=== PATIENT | female | born 1995 | race Caucasian/White ===

== ENCOUNTER 2022-05-23 17:10 | Emergency (ER) | payer SELFPAY ==
[2022-05-23] MEDS ORDERED: LORAZEPAM 1 MG TABLET ONE (18:25)
--- NOTE | 2022-05-23 19:42 | EDPHYS ---
Physician Documentation [facility] Name: Tali Lacy Age: 26 yrs Sex: Female : 1995 Arrival Date: 05/23/2022 Time: 17:13 Bed 5 Private MD: ED Physician Ej Wing HPI: 05/23 18:12 This 26 yrs old Female presents to ER via Wheelchair with complaints of Unable To Sleep.pm1 18:12 The patient presents to the emergency department with anxiety, over work, thinks he/she pm1 might get fired, insomnia. Onset: The symptoms/episode began/occurred 1 week(s) ago. Past psychiatric history: Prior diagnosis: PMDD, Psychiatric medications include: buspar and Ambien. Associated signs and symptoms: Pertinent positives; anxiety, Pertinent negatives: depression, homicidal ideation, suicide ideation. Severity of symptoms: in the emergency department the symptoms are worse. The patient has experienced similar episodes in the past, several times. The patient has not recently seen a physician, Just moved to the area. 26-year-old female presents to the ER with complaints of insomnia and anxiety related to PMDD. Patient is looking for assistance with treating her PMDD, IUD and BuSpar typically help with her symptoms. However patient has not been taking her BuSpar for approximately the past week. 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 Additionally she just forgets to take her BuSpar. Yesterday was the patient's first day on the job and she called in sick, and she presented to work today and was unable to function due to the PMDD. Patient is requesting a IUD which has helped in the past. 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 - Social history:: Smoking status: Patient denies any tobacco usage or history of. ROS: 18:12 Constitutional: Negative for fever, chills, and weight loss, Cardiovascular: Negative pm1 for chest pain, palpitations, and edema, Respiratory: Negative for shortness of breath, cough, wheezing, and pleuritic chest pain, Abdomen/GI: Negative for abdominal pain, nausea, vomiting, diarrhea, and constipation, MS/Extremity: Negative for injury and deformity, Skin: Negative for injury, rash, and discoloration, Neuro: Negative for headache, weakness, numbness, tingling, and seizure. 18:12 Psych: Positive for anxiety, insomnia, Negative for homicidal ideation, suicidal ideation. 18:12 All other systems are negative. Exam: 18:12 Constitutional: This is a well developed, well nourished patient who is awake, alert, pm1 and in no acute distress. Head/Face: Normocephalic, atraumatic. 18:12 Skin: Warm, dry with normal turgor. Normal color with no rashes, no lesions, and no evidence of cellulitis. MS/ Extremity: Pulses equal, no cyanosis. Neurovascular intact. Full, normal range of motion. 18:12 Eyes: Exam is negative for acute changes, Periorbital structures: appear normal, Pupils: no acute changes, Extraocular movements: no acute changes. 18:12 ENT: Exam is negative for Mouth: no acute changes, Lips: normal, moist, Oral mucosa: normal, pink and intact, moist. 18:12 Cardiovascular: Exam negative for acute changes, Rate: normal, Rhythm: regular, Pulses: no pulse deficits are appreciated. 18:12 Respiratory: Exam negative for acute changes, respiratory distress, shortness of breath. 18:12 Neuro: Exam negative for acute changes, Orientation: is normal, Mentation: is normal, Motor: is normal, moves all fours. 18:12 Psych: Behavior/mood is anxious, Affect is animated, Oriented to person, place, time, Delusions/hallucinations are not present. Vital Signs: 17:24 BP 142 / 90; Pulse 89; Resp 16; Temp 98.1; Pulse Ox 100% on R/A; Weight 72.57 kg; vg1 Height 5 ft. 5 in. (165.10 cm); Pain 0/10; 17:24 Body Mass Index 26.63 (72.57 kg, 165.10 cm) vg1 MDM: 18:11 Patient medically screened. pm1 18:12 ED course: Discussed with patient and her standard of care for psychiatric pm1 concerns in the ER which typically involves a toxicology work-up, that includes IV and blood work. Patient reported decreased p.o. intake therefore also offered and recommended IV fluids. Patient and her came in with the impression that possibly she can get an IUD to help out with her PMDD. However I informed him that she would need to go to a book editor/maintenance shop clerk for that and it is not performed in the ER. They refused blood work and IV fluids and wanted to take a medicine here by mouth to assist with her symptoms. I offered them a benzodiazepine to help her with her anxiety. Will give the patient Ativan the ER and recommended that she start taking her buspirone daily, since she has been missing multiple doses over the week, and she can take her Ambien at night as needed for her insomnia. 19:31 Data reviewed: vital signs. Data interpreted: Pulse oximetry: on room air is 100 %. pm1 Interpretation: normal. 19:40 Counseling: I had a detailed discussion with the patient and/or guardian regarding: the pm1 historical points, exam findings, and any diagnostic results supporting the discharge/admit diagnosis, the need for outpatient follow up, an OB/Gyne specialist, a psychiatrist, the need to transfer to another facility. Administered Medications: 18:50 Drug: Ativan (LORazepam) 1 mg Route: PO; ph 19:04 Follow up: Response: No adverse reaction ph Disposition: 05/24 07:39 Co-signature as Attending Physician, Ej Wing MD I agree with the assessment and kdr plan of care. Disposition Summary: 05/23/22 19:42 Discharge Ordered Location: Home pm1 Problem: new pm1 Symptoms: have improved pm1 Condition: Stable pm1 Diagnosis - Insomnia, unspecified pm1 Followup: pm1 - With: Emergency Department - When: As needed - Reason: Worsening of condition Followup: pm1 - With: Private Physician - When: 2 - 3 days - Reason: Recheck today's complaints, Continuance of care, Re-evaluation by your physician Discharge Instructions: - Discharge Summary Sheet pm1 - Insomnia pm1 - Managing Stress, Adult pm1 - Managing Anxiety, Adult pm1 Forms: - Medication Reconciliation Form pm1 - Thank You Letter pm1 - Antibiotic Education pm1 - Prescription Opioid Use pm1 Prescriptions: - Hydroxyzine HCl 25 mg Oral Tablet - take 1 tablet by ORAL route every 6 hours As needed; 12 tablet; Refills: 0, pm1 Product Selection Permitted Signatures: Ej Wing MD MD kdr Yanni Jack RN RN ph Malvin Quiles, WORM FARMER WORM FARMER pm1 Amalia Altman RN RN vg1
--- NOTE | 2022-05-23 19:42 | ER ---
Nurse's Notes [facility] Name: Tali Lacy Age: 26 yrs Sex: Female : 1995 Arrival Date: 05/23/2022 Time: 17:13 Bed 5 Private MD: Diagnosis: Insomnia, unspecified Presentation: 05/23 17:24 Chief complaint: Patient states: "I have PMDD and its keeping me for sleeping and vg1 eating; I forget to eat at times; I have a headache and I feel nauseated; I just so tired". Coronavirus screen: Vaccine status: Patient reports being unvaccinated. Client denies travel out of the [place] in the last 14 days. Ebola Screen: Patient denies exposure to infectious person. Patient denies travel to an Ebola-affected area in the 21 days before illness onset. Initial Sepsis Screen: Does the patient meet any 2 criteria? No. Patient's initial sepsis screen is negative. Does the patient have a suspected source of infection? No. Patient's initial sepsis screen is negative. Risk Assessment: Do you want to hurt yourself or someone else? Patient reports no desire to harm self or others. Onset of symptoms was May 18, 2022. 17:24 Method Of Arrival: Wheelchair vg1 17:24 Acuity: CARLOS 3 vg1 Triage Assessment: 17:28 General: Appears uncomfortable, Behavior is agitated. Pain: Denies pain. 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 - Social history:: Smoking status: Patient denies any tobacco usage or history of. Screenin:00 Abuse screen: Denies threats or abuse. Denies injuries from another. Nutritional ph screening: No deficits noted. Tuberculosis screening: No symptoms or risk factors identified. Fall Risk None identified. Assessment: 19:01 General: Appears in no apparent distress. Behavior is cooperative, anxious, restless. ph Pain: Denies pain. Neuro: Level of Consciousness is awake, alert, obeys commands, Oriented to person, place, situation, Pupils are pinpoint. Cardiovascular: Capillary refill < 3 seconds in bilateral fingers Patient's skin is warm and dry. Respiratory: Airway is patent Respiratory pattern is regular, symmetrical. Derm: Skin is intact, is healthy with good turgor, Skin is pink, warm \\T\\ dry. Vital Signs: 17:24 BP 142 / 90; Pulse 89; Resp 16; Temp 98.1; Pulse Ox 100% on R/A; Weight 72.57 kg; vg1 Height 5 ft. 5 in. (165.10 cm); Pain 0/10; 17:24 Body Mass Index 26.63 (72.57 kg, 165.10 cm) vg1 ED Course: 17:13 Patient arrived in ED. rg4 17:28 Triage completed. vg1 17:28 Arm band placed on. vg1 17:32 Yanni Jack RN is Primary Nurse. ph 17:38 Malvin Quiles NP is PHCP. 7 18:18 Ej Wing MD is Attending Physician. pm1 19:01 Patient has correct armband on for positive identification. Bed in low position. Call ph light in reach. Side rails up X 1. Pulse ox on. NIBP on. 19:04 No provider procedures requiring assistance completed. Patient did not have IV access ph during this emergency room visit. Administered Medications: 18:50 Drug: Ativan (LORazepam) 1 mg Route: PO; ph 19:04 Follow up: Response: No adverse reaction ph Medication: 19:01 VIS not applicable for this client. ph Outcome: 19:42 Discharge ordered by . pm1 20:02 Discharged to home ambulatory. ll3 20:02 Condition: stable 20:02 Discharge instructions given to patient, significant other, Instructed on discharge instructions, follow up and referral plans. medication usage, Demonstrated understanding of instructions, follow-up care, medications, Prescriptions given X 1. 20:02 Patient left the ED. ll3 Signatures: Yanni Jack RN RN Malvin Quiles NP COPRA SAMPLER pm1 Leigh Ann Altman 4 Shilpa Romeo RN RN 7 Amalia Altman RN RN [facility] Loubet, Lynsea, RN RN ll3
[2022-05-23 20:13] VITALS: BP 142/90; TEMP 98.1; O2SAT 100
== END 2022-05-23 20:02 | disposition home or self-care (01) ==
LOC: ER 17:10
DX: G47.00 Insomnia, unspecified (principal); F32.A Depression, unspecified; F32.81 Premenstrual dysphoric disorder
CPT/HCPCS: 99283

== ENCOUNTER 2022-05-25 15:53 | Emergency (ER) | payer SELFPAY ==
[2022-05-25 16:26] LABS: Absolute Lymphocytes (CBC) 1.6 K/uL (0.7-4.9); Hematocrit 39.2 % (36.0-45.0); Lymphocytes % 26.3 % (15.3-44.8); MCV 88.1 fL (80-100); MPV 8.7 fL (7.6-11.3); RBC Red Blood Cell Count 4.45 M/uL (3.86-4.86)
[2022-05-25 16:31] LABS: Protime INR 0.99
[2022-05-25 16:45] LABS: Bilirubin Direct 0.1 mg/dL (0-0.2); Bilirubin Total 0.5 mg/dL (0.2-1.0); Potassium 3.3 mmol/L (3.5-5.1)
[2022-05-25] MEDS ORDERED: LORazepam 2 MG/ML VIAL ONE (16:56)
[2022-05-25 17:25] LABS: Urine Blood Negative (Negative); Urine Glucose Negative (Negative); Urine Protein Negative (Negative)
[2022-05-25 17:40] LABS: Barbiturates NEGATIVE (NEGATIVE); Benzodiazepines NEGATIVE (NEGATIVE); Cocaine NEGATIVE (NEGATIVE); METHAMPHETAM NEGATIVE (NEGATIVE); Methadone NEGATIVE (NEGATIVE); Opiates NEGATIVE (NEGATIVE); Phencyclidine NEGATIVE (NEGATIVE); THC Cannibis NEGATIVE (NEGATIVE)
--- NOTE | 2022-05-25 19:29 | EDPHYS ---
Physician Documentation [facility] Name: Tali Lacy Age: 26 yrs Sex: Female : 1995 Arrival Date: 05/25/2022 Time: 15:53 Bed 14 Private MD: NIKOLAY Physician Subhash Khalil HPI: 05/25 17:55 This 26 yrs old Female presents to ER via Ambulatory with complaints of Psych Problem. kdr 17:55 The patient presents to the emergency department with psychosis, has delusions. Onset: kdr The symptoms/episode began/occurred gradually, The patient had delivered her first baby about 3 months ago. Since then she has progressively had worsening anxiety and sleep disorder. Most recently she has been reportedly running naked in her yard with her having to susan her down. In the emergency department, she is clearly psychotic with aberrant behavior. He does not follow commands or appear to be interacting or engaged appropriately in the environment around her. Past psychiatric history: Prior diagnosis: no previous psychiatric diagnosis known, Psychiatric medications include:. Severity of symptoms: At their worst the symptoms were moderate severe incapacitating in the emergency department the symptoms are unchanged. The patient has not experienced similar symptoms in the past. The patient has not recently seen a physician. Patient's states that she has been told that she has PMDD (premenstrual dysphoria disorder). She otherwise has no personal or familial history of psychiatric disease. He states that her was uneventful and pleasant. He has only been in the past few weeks to a month that she is started to have aberrant behavior. 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 - Social history:: Smoking status: Patient denies any tobacco usage or history of. ROS: 17:55 Constitutional: Negative for fever, chills, and weight loss, Eyes: Negative for injury, kdr pain, redness, and discharge, Neck: Negative for injury, pain, and swelling, Cardiovascular: Negative for chest pain, palpitations, and edema, Respiratory: Negative for shortness of breath, cough, wheezing, and pleuritic chest pain, Abdomen/GI: Negative for abdominal pain, nausea, vomiting, diarrhea, and constipation, Back: Negative for injury and pain, : Negative for injury, bleeding, discharge, and swelling, MS/Extremity: Negative for injury and deformity, Skin: Negative for injury, rash, and discoloration, Neuro: Negative for headache, weakness, numbness, tingling, and seizure activity. Allergy/Immunology: Negative for hives, rash, and allergies, Endocrine: Negative for neck swelling, polydipsia, polyuria, polyphagia, and marked weight changes, Hematologic/Lymphatic: Negative for swollen nodes, abnormal bleeding, and unusual bruising. 17:55 Psych: Positive for Patient is clearly delusional and engaged with the environment and people around her in an aberrant fashion. Exam: 17:55 Constitutional: This is a well developed, well nourished patient who is awake, alert, kdr and in no acute distress. Head/Face: Normocephalic, atraumatic. Eyes: Pupils equal round and reactive to light, extra-ocular motions intact. Lids and lashes normal. Conjunctiva and sclera are non-icteric and not injected. Cornea within normal limits. Periorbital areas with no swelling, redness, or edema. Neck: Trachea midline, no thyromegaly or masses palpated, and no cervical lymphadenopathy. Supple, full range of motion without nuchal rigidity, or vertebral point tenderness. No Meningismus. Chest/axilla: Normal chest wall appearance and motion. Nontender with no deformity. No lesions are appreciated. Cardiovascular: Regular rate and rhythm with a normal S1 and S2. No gallops, murmurs, or rubs. Normal PMI, no JVD. No pulse deficits. Respiratory: Lungs have equal breath sounds bilaterally, clear to auscultation and percussion. No rales, rhonchi or wheezes noted. No increased work of breathing, no retractions or nasal flaring. Abdomen/GI: Soft, non-tender, with normal bowel sounds. No distension or tympany. No guarding or rebound. No evidence of tenderness throughout. Back: No spinal tenderness. No costovertebral tenderness. Full range of motion. Skin: Warm, dry with normal turgor. Normal color with no rashes, no lesions, and no evidence of cellulitis. MS/ Extremity: Pulses equal, no cyanosis. Neurovascular intact. Full, normal range of motion. Psych: Awake, alert, with orientation to person, place and time. Behavior, mood, and affect are within normal limits. 17:55 Psych: Behavior/mood is anxious, uncooperative, delirious, inappropriate for age, Affect is animated, Not oriented to person place, time, Patient has no thoughts/intents to harm self or others. Judgement / Insight is impaired. Delusions/hallucinations are present and described as Patient's mental status compromised as she is clearly delusional.. Vital Signs: 16:05 BP 139 / 87; Pulse 72; Resp 25; Temp 97.5(TE); Pulse Ox 99% on R/A; Height 5 ft. 5 in. ss (165.10 cm); 16:58 BP 136 / 80; Pulse 64; Resp 18; Pulse Ox 97% on R/A; ll1 05/26 07:20 BP 118 / 64; Pulse 62; Resp 16; Temp 97.6(TE); Pulse Ox 100% ; Pain 0/10; ke1 05/27 06:37 BP 117 / 98; Pulse 78; Resp 17; Temp 97.8(O); Pulse Ox 100% on R/A; mw2 MDM: 05/25 17:55 Data reviewed: vital signs, nurses notes, lab test result(s), radiologic studies. kdr Counseling: I had a detailed discussion with the patient and/or guardian regarding: the historical points, exam findings, and any diagnostic results supporting the discharge/admit diagnosis, lab results. 18:58 ED course: Dr. Khalil to disposition. kdr 19:20 Patient medically screened. [facility] 05/26 18:24 ED course: Patient remained stable in the ED today. She is only required medication 1 kdr time. She seems to be improving and interacting more appropriately with family and staff. He still on the waiting list for [facility] psych. 18:56 ED course: Patient seems much more alert and appropriate. She is engaging appropriately kdr with her and the nursing staff. She has been sleeping off and on today and when the came in this evening, she was awakened from sleep at that time. She is becoming more aware of her condition and the state she was in yesterday. This is been somewhat traumatic for her and she is intermittently crying. She is however talking in an appropriate fashion and again is engaged with her in understanding what is happened with her in the last week or 2. In the final analysis it would appear that in the midst of not getting any sleep and continued sleep deprivation, she was taking increasing doses of her Ambien. The Ambien was not having any effect on her sleeping and in fact probably contributed to her psychosis for which she presented to the ED. She is not presently homicidal or suicidal and in my discussions with the , appears to be safe for discharge. Their new baby is under the care of an aunt next few days. This will give them time to further and rest and perspective on the events of the last 10 days.. 05/27 14:28 ED course: Doc to doc with Dr Johnny alexandre. ms3 05/25 15:56 Order name: Acetaminophen; Complete Time: 19:21 [facility] 05/25 15:56 Order name: Basic Metabolic Panel; Complete Time: 19: kdr 05/25 15:56 Order name: CBC with Diff; Complete Time: 19:21 kdr 05/25 15:56 Order name: ETOH Level; Complete Time: 19: [facility] 05/25 15:56 Order name: Hepatic Function; Complete Time: 19: kdr 05/25 15:56 Order name: PT-INR; Complete Time: 19:21 kdr 05/25 15:56 Order name: Ptt, Activated; Complete Time: 19: [facility] 05/25 15:56 Order name: Salicylate; Complete Time: 19:21 kdr 05/25 15:56 Order name: Urine Drug Screen; Complete Time: 19:21 kdr 05/25 17:25 Order name: Urine Dipstick-Ancillary; Complete Time: 19:21 [facility] 05/25 19:29 Order name: SARS-COV-2 RT PCR (Document "Date of Onset" if Symptomatic); Complete Time: wm 22:01 05/25 15:56 Order name: IV Saline Lock; Complete Time: 17:04 kdr 05/25 15:56 Order name: Labs collected and sent; Complete Time: 17:04 [facility] 05/25 15:56 Order name: Suicide Screening ([place]); Complete Time: 17:05 kdr 05/25 15:56 Order name: Urine Dipstick-Ancillary (obtain specimen); Complete Time: 17:17 kdr 05/25 17:47 Order name: Diet Finger Food; Complete Time: 17:47 05/25 17:48 Order name: Diet Diet As Per Parent; Complete Time: 17:48 zm 05/27 11:10 Order name: Diet Finger Food; Complete Time: 11:11 eb Administered Medications: 05/25 16:50 Drug: Ativan (LORazepam) 1 mg Route: IVP; Site: right antecubital; ll1 17:17 Drug: Ativan (LORazepam) 1 mg Route: IVP; Site: right antecubital; ll1 17:17 Follow up: Response: No adverse reaction; RASS: Alert and Calm (0) ll1 17:53 Follow up: Response: No adverse reaction; RASS: Alert and Calm (0) ll1 19:44 Drug: Potassium Effervescent Tablet 50 mEq Route: PO; ke1 21:39 Follow up: Response: No adverse reaction ke1 22:13 Drug: NS 0.9% 1000 ml Route: IV; Rate: 1 bolus; Site: right antecubital; ke1 23:00 Follow up: IV Status: Completed infusion ke1 05/26 02:48 Drug: Ativan (LORazepam) 1 mg Route: IVP; Site: right antecubital; lp1 04:25 Follow up: Response: Anxiety decreased ke1 04:33 Follow up: Response: Marked relief of symptoms; Anxiety decreased ke1 06:08 Drug: Ativan (LORazepam) 1 mg Route: IVP; Site: right antecubital; ke1 12:27 Drug: Ativan (LORazepam) 1 mg Route: IVP; Site: right antecubital; jh6 21:21 Drug: Ativan (LORazepam) 1 mg Route: IVP; Site: right antecubital; vc1 22:30 Follow up: Response: Marked relief of symptoms; Anxiety decreased vc1 05/27 01:10 Drug: Ativan (LORazepam) 1 mg Route: IVP; Site: right antecubital; vc1 05:41 Follow up: Response: Adverse reaction, Physician notified; No change in condition; vc1 RASS: Restless (+1) 01:42 Drug: Geodon (ziprasidone) 20 mg Route: IM; Site: right gluteus; vc1 05:41 Follow up: Response: No adverse reaction; Marked relief of symptoms; RASS: Light vc1 sedation (-2) 11:00 Drug: Ativan (LORazepam) 1 mg Route: IVP; Site: right antecubital; jh6 Disposition Summary: 05/26/22 21:45 Transfer Ordered Transfer Location: Psych Facility(05/26/22 21:45) isa Reason: Higher level of care(05/26/22 21:45) isa Condition: Fair(05/26/22 21:45) isa Problem: new(05/26/22 21:45) isa Symptoms: have improved(05/26/22 21:45) isa Accepting Physician: to psych(05/27/22 17:54) [facility] Diagnosis - Brief psychotic disorder isa - Major depressive disorder, recurrent, moderate isa - Insomnia(05/26/22 21:45) isa Forms: - Medication Reconciliation Form isa - SBAR form isa Signatures: Dispatcher [employer] EDMS Subhash Khalil MD MD cha Rittger, Kevin, MD MD kdr Smirch, Shelby, RN RN ss Sara Graham RN RN lp1 Marcin Garcia RN RN ll1 David Foote DO DO ms3 Mallory Borges RN RN jh6 Riya Perez RN RN vc1 Cecille Mccormack RN RN ke1 Nancy Villela, PA PA sb3 Corrections: (The following items were deleted from the chart) 05/25 22:00 19:28 to psych isa isa / 18:59 03 19:28 Psych Facility isa kdr / 18:59 05/25 19:28 Higher level of care isa kdr / 18:59 03 19:28 Stable isa kdr / 18:59 05/25 19:28 new isa kdr / 18:59 0703 19:28 have improved isa kdr / 18:59 07 19:28 Major depressive disorder, recurrent, unspecified - psychosis isa kdr / 18:59 0703 22:00 to psych isa kdr / 18:59 05/25 22:00 Insomnia isa kdr / 19:38 19:00 Home kdr kdr 19:38 19:00 new kdr kdr 19:38 19:00 have improved kdr kdr 19:38 19:00 Stable kdr kdr 19:38 19:00 Insomnia kdr kdr 19:38 19:00 Insomnia, unspecified kdr kdr 19:38 19:00 Unspecified psychosis not due to a substance or known physiological condition kdr kdr 19:38 19:00 Adverse medication reaction (Ambien) kdr kdr 19:38 19:00 Psychotic disorder with delusions due to known physiological condition [facility] 05/27 17:54 05/26 21:45 to psych [facility] jh6
--- NOTE | 2022-05-25 19:29 | ER ---
Nurse's Notes [facility] Name: Tali Lacy Age: 26 yrs Sex: Female : 1995 Arrival Date: 05/25/2022 Time: 15:53 Bed 14 Private MD: Diagnosis: Brief psychotic disorder;Major depressive disorder, recurrent, moderate;Insomnia Presentation: 05/25 16:05 Chief complaint: Spouse and/or significant other states: Episodic psychosis that has ss been ongoing and worsening for the past week. states, "she has PMDD, but we've never experienced anything like this.". Coronavirus screen: Client denies travel out of the [place] in the last 14 days. Ebola Screen: Patient denies exposure to infectious person. Patient denies travel to an Ebola-affected area in the 21 days before illness onset. Initial Sepsis Screen: Does the patient meet any 2 criteria? No. Patient's initial sepsis screen is negative. Does the patient have a suspected source of infection? No. Patient's initial sepsis screen is negative. Risk Assessment: Do you want to hurt yourself or someone else? Patient reports no desire to harm self or others. Onset of symptoms was May 18, 2022. 16:05 Method Of Arrival: Ambulatory ss 16:05 Acuity: CARLOS 3 ss 20:00 Risk Assessment: Do you want to hurt yourself or someone else? Patient reports no ke1 desire to harm self or others. MARIONETTE PERFORMER: 16:27 LMP N/A - Recent ll1 Historical: - PMHx: 15:58 PMDD; depressive disorder; ll1 - PSHx: 15:58 Vaginal tear; ll1 - Immunization history:: Adult Immunizations up to date. - Social history:: Smoking status: Patient denies any tobacco usage or history of. Screenin:22 Abuse screen: Denies threats or abuse. Nutritional screening: No deficits noted. ll1 Tuberculosis screening: No symptoms or risk factors identified. Fall Risk Secondary diagnosis (15 points) possible psychosis. IV access (20 points). Gait- Impaired (20 pts.). Total [place] Fall Scale indicates High Risk Score (45 or more points). Fall prevention measures have been instituted. Side Rails Up X 2 Placed Close to Nursing Station Frequent Obs/Assessments Occuring Family Present and informed to notify staff if the need to leave the bedside As available patient and family educated on Fall Prevention Program and Strategies. Assessment: 16:00 General: Appears distressed, Behavior is cooperative, anxious, restless. Pain: Denies ll1 pain. Neuro: Level of Consciousness is awake, confused, Oriented to unable to assess, non verbal at this time.. Speech is normal, Facial symmetry appears normal. Cardiovascular: No deficits noted. Respiratory: No deficits noted. 16:27 Reassessment: No changes from previously documented assessment. Patient and/or family ll1 updated on plan of care and expected duration. Pain level reassessed. 16:58 Reassessment: No changes from previously documented assessment. Patient and/or family ll1 updated on plan of care and expected duration. Pain level reassessed. trying to get out of bed. Can be redirected back into bed. Undressing also. Dr. Wing to bedside. 18:00 Reassessment: No changes from previously documented assessment. Patient and/or family ll1 updated on plan of care and expected duration. Pain level reassessed. Patient states symptoms have improved. 19:30 Neuro: Level of Consciousness is awake, alert, Oriented to person, place, time, ke1 situation, Manager Produce are equal bilaterally Moves all extremities. Speech is normal, Facial symmetry appears normal, Pupils are PERRLA, Intact. 20:10 General: Behavior is anxious, inappropriate for age. ke1 21:00 General: Behavior is anxious, crying. ke1 22:00 General: Behavior is calm, Sleeping. ke1 23:00 General: Behavior is calm, inappropriate for age, sitting in chair at bedside. ke1 05/26 00:46 Reassessment: No changes from previously documented assessment. ke1 00:50 Reassessment: number : [phone]. ke1 03:00 General: Behavior is anxious, inappropriate for age, restless, trying to get out of ke1 room making gestures . 07:20 General: Appears in no apparent distress. sleeping. Behavior is calm, drowsy. ke1 07:20 General: attempted to wake pt for evaluation and pt was to drowsy and would not stay ke1 awake to answer questions. pt given Ativan prior to shift change for restlessness. report given was that pt has been cooperative but anxious and restless during the night. pt at not time reported to previous shift that she had thoughts of SI or HI. Pt in view of nurses station with curtain open. . 11:45 Reassessment: pt is awake and tearful. when asked what was wrong and inquired as to why jh6 she was crying pt stated that she was sorry and that she has been not sleeping well. asked about her and when asked pt stated she she hasn't slept in awhile. pt when asked if she was feeling SI or HI she replied no. also asked pt if the was feeling a little confused and she stated yes. asked her if she wanting something to help her rest and if sleeping this am helped her feel less confused and pt stated "yes it helped". Provider then asked for meds for pt. 14:51 General: spouse at bedside pt cooperative with spouse and interacting well. jh6 19:15 Reassessment: Pt sitting in bed, and Dr. Wing at bedside. vc1 21:15 Reassessment: Pt sitting in bed rocking back in forth attempted to scoot backwards to vc1 the head of the bed singing and crying loudly. Provider notified. at bedside. 22:30 Reassessment: Pt laying in bed eyes closed, left bedside to return home since vc1 pt is finally asleep. 05/27 00:00 Reassessment: Pt sleeping. vc1 01:00 Reassessment: Pt dancing in the graham outside her room, pt redirected to her room, she vc1 states she just wants to sit on the side of her bed. 01:00 General: Appears in no apparent distress. Behavior is restless. vc1 01:35 Reassessment: Patient and/or family updated on plan of care and expected duration. Pain vc1 level reassessed. pt states she has to go to the bathroom, she doesn't want to go back to her room. Reassessment: Patient denies pain at this time. General: Behavior is anxious, crying, inappropriate for age, restless. 02:00 Reassessment: Patient and/or family updated on plan of care and expected duration. Pain vc1 level reassessed. Pt sleeping mario. 03:00 Reassessment: No changes from previously documented assessment. vc1 04:00 Reassessment: No changes from previously documented assessment. Patient and/or family vc1 updated on plan of care and expected duration. Pain level reassessed. 07:15 General: pt sleeping nad noted. spouse went home last night and was advised that meds jh6 were given to help calm pt. will attempt to evaluated pt when she wakes. . 10:48 General: pt awake when asked id she was hungry pt states "not yet". pt pacing around [facility] room with gown on backwards. assisted pt to tie gown and gave additional gown so as to no expose pt. asked pt if she felt better after sleeping a few hrs and she smiles and stated yes. also when asked where she currently was and her name she was able to answer both correctly. pt pacing and not wanting to stay in room but is able to be redirected . Psych: 05/25 16:22 [place]wey Suicide Severity Screening: In the past month, have you wished you were ll1 or wished you could go to sleep and not wake up? No SI reported by . Patient not making sense at this time. "In the past month, have you actually had any thoughts of killing yourself?". [place] Suicide Severity Screening: "In the past month, have you actually had any thoughts of killing yourself?" denies "In your lifetime, have you ever done anything, started to do anything, or prepared to do anything to end your life?" denies. Subjective: Patient's mood is elevated, Delusions are Hallucinations are suspected, Having thoughts of unsafe to herself. Opened car door while driving down the road. Objective: Patient is using poor eye contact, restless, Speech is rambling, soft, Affect is inappropriate. Interventions: Removed personal items and placed in bag. Patient placed in hospital gown. Safety Checks: Visitors are present. Pt denies substance abuse. Commitment: Patient will be an involuntary commitment. Vital Signs: 16:05 BP 139 / 87; Pulse 72; Resp 25; Temp 97.5(TE); Pulse Ox 99% on R/A; Height 5 ft. 5 in. ss (165.10 cm); 16:58 BP 136 / 80; Pulse 64; Resp 18; Pulse Ox 97% on R/A; ll1 05/26 07:20 BP 118 / 64; Pulse 62; Resp 16; Temp 97.6(TE); Pulse Ox 100% ; Pain 0/10; ke1 05/27 06:37 BP 117 / 98; Pulse 78; Resp 17; Temp 97.8(O); Pulse Ox 100% on R/A; mw2 ED Course: 05/25 15:53 Patient arrived in ED. rg4 15:55 Ej Wing MD is Attending Physician. kdr 15:57 Marcin Garcia, RN is Primary Nurse. ll1 15:57 Arm band placed on Patient placed in an exam room, on a stretcher. ll1 16:05 Inserted saline lock: 22 gauge in right antecubital area, using aseptic technique. ll1 Blood collected. 16:09 Triage completed. ss 16:26 Patient has correct armband on for positive identification. Bed in low position. Call ll1 light in reach. Side rails up X 1. Pulse ox on. NIBP on. 16:26 No provider procedures requiring assistance completed. ll1 19:20 Attending Physician role handed off by Ej Wing MD isa 19:20 Subhash Khalil MD is Attending Physician. isa 19:20 Called [facility], spoke to Blessing in regards to getting screened. wm 20:30 Nikolas from [facility] came to screen Pt. wm 05/26 03:00 Sitter at bedside. ke1 07:04 per the fax from [facility] they will have to decline the patient in transfer eb due to being at capacity. 08:05 called [facility] to check on status of transfer/ per Arlene the [facility] beds they have are full currently, they have placed her on the wait list. 08:11 called [facility] to check on the status of the transfer/ per intake he eb will call me back in 15 minutes/ He needs to see if they have a [facility] Bed and review the chart. 09:20 [facility] stated still on waiting list but 20-30 people ahead of her. wm 09:23 Called [facility] and they have no beds. wm 18:24 Attending Physician role handed off by Subhash Khalil MD kdr 18:24 Ej Wing MD is Attending Physician. kdr 19:22 Attending Physician role handed off by Ej Wing MD isa 19:22 Subhash Khalil MD is Attending Physician. isa 21:26 Faxed chart to the following for possible placement: [facility], [facility], [facility], [facility], [facility], [facility], [facility]. 21:47 Pamela called and stated they have no beds currently but they would in the morning. 23:45 Radha from [facility] called asking for an Exclusion on Pt., immediately faxed afterwards. 05/27 07:04 Primary Nurse role handed off by Marcin Garcia RN eb 07:30 Arlene from [facility] called to let us know she was still on the waiting eb list. 10:44 Araceli Agudelo, RN is Primary Nurse. ld1 12:14 Diet: Patient given a regular meal tray. mb4 14:08 connected Arlene Rn from [facility] with Disha Santiago for patient transfer eb consultation. 14:[address] Sorensen the psychiatrist coconut boiler for [facility] with Dr. Foote for patient eb transfer consultation. 15:58 administrative approval given by Abbi Jordan / patient has been accepted to [facility]. 17:53 Mallory Borges, BOBBI is Primary Nurse. jh6 Administered Medications: 05/25 16:50 Drug: Ativan (LORazepam) 1 mg Route: IVP; Site: right antecubital; ll1 17:17 Drug: Ativan (LORazepam) 1 mg Route: IVP; Site: right antecubital; ll1 17:17 Follow up: Response: No adverse reaction; RASS: Alert and Calm (0) ll1 17:53 Follow up: Response: No adverse reaction; RASS: Alert and Calm (0) ll1 19:44 Drug: Potassium Effervescent Tablet 50 mEq Route: PO; ke1 21:39 Follow up: Response: No adverse reaction ke1 22:13 Drug: NS 0.9% 1000 ml Route: IV; Rate: 1 bolus; Site: right antecubital; ke1 23:00 Follow up: IV Status: Completed infusion ke1 05/26 02:48 Drug: Ativan (LORazepam) 1 mg Route: IVP; Site: right antecubital; lp1 04:25 Follow up: Response: Anxiety decreased ke1 04:33 Follow up: Response: Marked relief of symptoms; Anxiety decreased ke1 06:08 Drug: Ativan (LORazepam) 1 mg Route: IVP; Site: right antecubital; ke1 12:27 Drug: Ativan (LORazepam) 1 mg Route: IVP; Site: right antecubital; jh6 21:21 Drug: Ativan (LORazepam) 1 mg Route: IVP; Site: right antecubital; vc1 22:30 Follow up: Response: Marked relief of symptoms; Anxiety decreased vc1 05/27 01:10 Drug: Ativan (LORazepam) 1 mg Route: IVP; Site: right antecubital; vc1 05:41 Follow up: Response: Adverse reaction, Physician notified; No change in condition; vc1 RASS: Restless (+1) 01:42 Drug: Geodon (ziprasidone) 20 mg Route: IM; Site: right gluteus; vc1 05:41 Follow up: Response: No adverse reaction; Marked relief of symptoms; RASS: Light vc1 sedation (-2) 11:00 Drug: Ativan (LORazepam) 1 mg Route: IVP; Site: right antecubital; 6 Medication: 05/25 16:26 VIS not applicable for this client. 1 Outcome: 19:28 ER care complete, transfer ordered by . [facility] 05/26 19:00 Discharge ordered by . kdr 21:45 ER care complete, transfer ordered by MD. [facility] 05/27 17:54 Patient left the ED. [facility] Signatures: Subhash Khalil MD MD cha Rittger, Kevin, MD MD kdr Smirch, Shelby, RN RN ss Pena, Laura, RN RN 1 Leigh Ann Altman 4 Yesi Garcia 2 Barb Pierce Mariel Lopez mb4 Marcin Garcia RN RN ll1 Araceli Agudelo RN RN rey1 Elisa Monroe Jennifer, RN RN 6 Riya Perez RN RN vc1 Cecille Mccormack RN RN ke1 Corrections: (The following items were deleted from the chart) 05/25 16:27 16:27 Reassessment: No changes from previously documented assessment. Patient and/or ll1 family updated on plan of care and expected duration. Pain level reassessed. Patient is alert, oriented x 3, equal unlabored respirations, skin warm/dry/pink. ll1 05/26 03:54 01:23 Neuro: ke1 ke1 04:27 04:26 BP 143 / 55; Pulse 45bpm; Resp 16bpm; Pulse Ox 100% BiPAP; ke1 ke1
[2022-05-25] MEDS ORDERED: POTASSIUM 25 MEQ EFFERV TAB ONE (19:48)
[2022-05-25] MEDS ORDERED: NA CHLORIDE 0.9% 1,000 ML ONE (22:14)
[2022-05-26] MEDS ORDERED: LORazepam 2 MG/ML VIAL ONE ×4 (02:48→21:23)
[2022-05-27] MEDS ORDERED: WATER FOR INJ,STERILE 10 ML ONE (01:23)
[2022-05-27] MEDS ORDERED: ZIPRASIDONE MESYLA 20 MG/VIAL IM ONE (01:23)
[2022-05-27] MEDS ORDERED: LORazepam 2 MG/ML VIAL ONE (11:05)
[2022-05-27 18:04] VITALS: O2SAT 100
[2022-05-27 18:06] VITALS: BP 117/98; TEMP 97.8
== END 2022-05-27 17:54 ==
LOC: ER 15:53
DX: F23 Brief psychotic disorder (principal); G47.00 Insomnia, unspecified; F33.1 Major depressive disorder, recurrent, moderate; Z20.822 Contact with and (suspected) exposure to COVID-19
CPT/HCPCS: 36415; 80048; 80076; 80307; 80320; 80329; 81003; 85025; 85610; 85730; J3486; J7030; U0003